=== PATIENT | male | born 1950 | race Caucasian/White ===

== ENCOUNTER 2021-05-08 12:11 | Observation (INO) | payer MEDICARE ==
[~2021-05-08] VITALS: Ht 188 cm; Wt 93.6 kg
[~2021-05-08 12:11] MED LIST: ANORO IH; ASPIRIN E.C. 8181 MG PO; CARDIZEM CD 18180 MG PO; COREG 25MG25 MG/TAB PO; DEMADEX100 MG PO; DIABETA 5MG5 MG/TAB PO; ELIQUIS 5MG PO; FARXIGA10 PO; FARXIGA5 PO; FISH OIL 1000MG1 CAP PO; FISH OIL1000 MG PO; GLUCOPHAGE1000 MG PO; GLUCOPHAGE500 MG/TAB PO; INSPRA25 MG PO; JANUVIA 100MG100 MG PO; LASIX 20MG TABL20 MG PO; LIPITOR20 MG PO; MULTAQ400 MG PO; MULTIPLE VITAMI1 CAP PO; NITRO-DUR0.2 MG/PAT TD; PULMICORT180 MCG/Ac IH; ZESTRIL40 MG PO
[2021-05-08 12:41] LABS: HEMOGLOBIN 11.1 g/dl (13.5-18.0); MEAN CELL VOLUME 83 fl (80.0-100.0); MEAN CORPUSCULAR HEMOGLOBIN 27 pg (27-31); MEAN CORPUSCULAR HGB CONC 33 g/dl (33.0-37.0); MEAN PLATELET VOLUME 10.6 fl (7.4-10.4); PLATELET COUNT 282 K/mm3 (130-400); RED BLOOD COUNT 4.12 M/mm3 (4.20-5.60); REDCELL DISTRIBUTION WIDTH-CV 15.9 % (11.5-14.5)
[2021-05-08 12:43] LABS: HEMATOCRIT 34.2 % (42.0-52.0)
[2021-05-08 12:56] LABS: ALANINE AMINOTRANSFERASE 28 U/L (0-55); ALBUMIN 2.7 gm/dL (3.4-4.8); ALKALINE PHOSPHATASE 137 U/L (40-150); ANION GAP 16 mmol/L (7-16); AST,SGOT 19 U/L (5-34); BILIRUBIN,TOTAL 1.6 mg/dL (0.2-1.2); BLOOD UREA NITROGEN 37 mg/dL (8-26); CARBON DIOXIDE 20 mmol/L (23-31); CHLORIDE 100 mmol/L (98-107); CREATININE, serum 1.52 mg/dL (0.72-1.25); GLUCOSE 123 mg/dL (70-99); POTASSIUM 5.3 mmol/L (3.5-4.5); SODIUM 136 mmol/L (136-145); TOTAL PROTEIN 6.6 gm/dL (6.2-8.1)
[2021-05-08 13:01] LABS: ANISOCYTOSIS 1+; EOSINOPHIL 3 % (0-4); LYMPHOCYTE 10 % (20.0-51.0); NEUTROPHILS 80 % (42.0-75.2); PLATELET ESTIMATE NORMAL (NORMAL)
[2021-05-08 13:04] LABS: TROPONIN-I < 0.010 ng/mL (0.00-0.033)
[2021-05-08 17:22] LABS: COLLECTION METHOD CLEAN CATCH
[2021-05-08 17:32] LABS: PH 5 (5-8); SQUAMOUS EPITHELIAL 0-2 /hpf (0-10); URINE APPEARANCE Clear (CLEAR/HAZY); URINE BACTERIA None Seen (NONE SEEN); URINE BILIRUBIN Negative (NEGATIVE); URINE BLOOD Negative (NEGATIVE); URINE COLOR Yellow (YELLOW); URINE GLUCOSE 1+ (NEGATIVE); URINE KETONE Negative (NEGATIVE); URINE LEUKOCYTE ESTERASE Negative (NEGATIVE); URINE NITRATE Negative (NEGATIVE); URINE PROTEIN(semi-quant) Negative (NEGATIVE); URINE RBC 0-2 /hpf (0-2)
--- NOTE | 2021-05-08 19:46 | NUR ---
RECEIVED REPORT FROM ED RNRITU. PATIENT ARRIVAL FROM E.D. PENDING FOR ADMIT TO ROOM 358.
--- NOTE | 2021-05-08 20:15 | NUR ---
PATIENT TO ROOM PER E.D. CART W/PCT TRANSPORTING PATIENT. PATIENT ON ROOM AIR, TELE IN PLACE. INT TO RAC IN PLACE. PATIENT HAS SPILLED URINAL WHEN ARRIVED TO ROOM WHILE ON E.D. CART. OBSERVED URINE YELLOW ON LINEN/CHUX PAD. DENIES CHEST PAIN. PATIENT ALERT AND ORIENTED.
[2021-05-08 20:51] VITALS: BP 169/82; PULSE 98; TEMP 98.7
[2021-05-08 20:53] LABS: MAGNESIUM 1.3 mg/dL (1.6-2.6); PHOSPHOROUS 3.6 mg/dL (2.3-4.7)
[2021-05-08] MEDS ORDERED: COREG12.5 MG PO (23:15)
[2021-05-08] MEDS ORDERED: DEMADEX 20MG20 M1 PO (23:21)
[2021-05-08] MEDS ORDERED: ALDACTONE 25MG25 M1 PO (23:22)
[2021-05-08] MEDS ORDERED: XARELTO20 MG PO (23:24)
[2021-05-08] MEDS ORDERED: FARXIGA5 PO (23:26)
[2021-05-08] MEDS ORDERED: CEPHALEXIN500 M1 PO (23:27)
[2021-05-09] VITALS (7 sets, daily range): BP systolic 118–143; BP diastolic 50–70; PULSE 50–95; TEMP 97.3–98.1
[2021-05-09 01:05] LABS: CALCIUM 8.4 mg/dL (8.4-10.2); CREATININE, serum 1.26 mg/dL (0.72-1.25)
[2021-05-09 01:21] LABS: TROPONIN-I 0.041 ng/mL (0.00-0.033)
--- NOTE | 2021-05-09 04:04 | NUR ---
PATIENT WEAK PRIOR TO ADMIT AND SINCE ADMIT TO ROOM 358. DENIES CHEST PAIN/SOA SO FAR THIS SHIFT. IV FLUIDS INFUSING WITH NO PROBLEMS. TELE IN PLACE.
--- NOTE | 2021-05-09 06:30 | NUR ---
Report received from MAEGAN Noel. Pt in bed resting, denies need,s will continue ot monitor.
--- NOTE | 2021-05-09 07:34 | NUR ---
CHANGE OF SHIFT REPORT GIVEN TO DAY SHIFT RN, INOCENCIO.
[2021-05-09 07:38] LABS: HEMOGLOBIN 10.4 g/dl (13.5-18.0); MEAN CELL VOLUME 83 fl (80.0-100.0); MEAN CORPUSCULAR HEMOGLOBIN 27 pg (27-31); MEAN CORPUSCULAR HGB CONC 32 g/dl (33.0-37.0); MEAN PLATELET VOLUME 10.8 fl (7.4-10.4); PLATELET COUNT 269 K/mm3 (130-400); RED BLOOD COUNT 3.86 M/mm3 (4.20-5.60); REDCELL DISTRIBUTION WIDTH-CV 15.9 % (11.5-14.5)
[2021-05-09 07:39] LABS: HEMATOCRIT 32.2 % (42.0-52.0)
[2021-05-09 07:49] LABS: CALCIUM 8.5 mg/dL (8.4-10.2); CREATININE, serum 1.09 mg/dL (0.72-1.25); POTASSIUM 4.5 mmol/L (3.5-4.5)
--- NOTE | 2021-05-09 08:32 | NUR ---
Assessment charted. Pt i nbed resting, getting echo at this itme. Denies pain. IVF to RFA. Alert and oriented. Eating breakfast well and low blood sugar from this am resolving, will conitnue to monitor.
[2021-05-09 09:29] LABS: BASOPHIL 2 % (0-2); EOSINOPHIL 4 % (0-4); LYMPHOCYTE 8 % (20.0-51.0); NEUTROPHILS 80 % (42.0-75.2); PLATELET ESTIMATE NORMAL (NORMAL)
[2021-05-09 09:30] LABS: ANISOCYTOSIS 1+; HYPOCHROMIA 1+
--- NOTE | 2021-05-09 14:30 | NUR ---
First visit from the stitch welder. No needs right now.
--- NOTE | 2021-05-09 16:36 | NUR ---
Lead Retail Sales Associate met with patient to discuss discharge planning. Patient lives in [place] with his , Ophelia (ph#[phone]) and sees Valeria Leroy APRN at [facility] in for primary care. Patient also obtains medications from [facility]. Patient states he has home oxygen through [employer] and also has a cane/walker. Patient states he has been having difficulty with ADLS and feels he needs rehab before returning home. Patient is currently observation status but believes he had three inpatient midnights at [facility] and [facility] (05/01-05/04). Patient's preferences for rehab are 1)[facility] and 2) [facility]. SW contacted both facilities and faxed referrals. Discharge Plan: Pending referrals at [facility] and [facility]
--- NOTE | 2021-05-09 19:20 | NUR ---
Pt has done well over shift today. REsting in bed, taking PO well, voiding per urinal with incontinence at times. Report given to mahihijasvir batista who will resume care.
[2021-05-10 02:32] VITALS: BP 124/54; PULSE 81; TEMP 98
[2021-05-10 06:06] VITALS: BP 125/54; PULSE 76; TEMP 98.2
--- NOTE | 2021-05-10 06:14 | NUR ---
PT HAD UNEVENTFUL NIGHT THIS SHIFT. ALL NEEDS MET. CALL LIGHT WTIHIN REACH.
[2021-05-10 07:26] LABS: MEAN CELL VOLUME 85 fl (80.0-100.0); MEAN CORPUSCULAR HGB CONC 31 g/dl (33.0-37.0); PLATELET COUNT 258 K/mm3 (130-400); RED BLOOD COUNT 3.61 M/mm3 (4.20-5.60); REDCELL DISTRIBUTION WIDTH-CV 15.9 % (11.5-14.5)
[2021-05-10 07:36] LABS: HEMATOCRIT 30.6 % (42.0-52.0); HEMOGLOBIN 9.6 g/dl (13.5-18.0); MEAN CORPUSCULAR HEMOGLOBIN 27 pg (27-31)
[2021-05-10 07:38] LABS: CALCIUM 8.6 mg/dL (8.4-10.2); CREATININE, serum 1.09 mg/dL (0.72-1.25); POTASSIUM 4.6 mmol/L (3.5-4.5)
[2021-05-10 08:07] VITALS: BP 130/59; PULSE 94; TEMP 97.9
--- NOTE | 2021-05-10 08:13 | NUR ---
Pt assessment complete. Pt is laying in bed upon entry, he is A/O x4. His breathing is even and unlabored on 3L O2 via [place]. Pt denies SOB. Reports he only wears oxygen at night and would like to take it off at this time. No pain reported. Denies N/V. Pt incontinent of urine and some stool, pericare provided. Pt repositioned. No further needs, call light within reach.
[2021-05-10 09:13] LABS: BAND 11 % (0-10); EOSINOPHIL 6 % (0-4); LYMPHOCYTE 11 % (20.0-51.0); NEUTROPHILS 60 % (42.0-75.2); PLATELET ESTIMATE NORMAL (NORMAL)
[2021-05-10 11:05] VITALS: BP 104/62; PULSE 71; TEMP 98.8
[2021-05-10] MEDS ORDERED: GLUCOPHAGE500 MG/TAB PO (14:53)
[2021-05-10] MEDS ORDERED: DIABETA 5MG5 MG/TAB PO (14:53)
[2021-05-10] MEDS ORDERED: JANUVIA 100MG100 MG PO (14:53)
[2021-05-10] MEDS ORDERED: TOPROL XL 50MG50 MG PO (14:53)
[2021-05-10] MEDS ORDERED: FARXIGA5 PO (14:53)
[2021-05-10] MEDS ORDERED: ASPIRIN E.C. 8181 MG PO (14:53)
[2021-05-10] MEDS ORDERED: XARELTO20 MG PO (14:54)
[2021-05-10] MEDS ORDERED: LIPITOR20 MG PO (14:55)
[2021-05-10] MEDS ORDERED: MULTAQ400 MG PO (14:55)
[2021-05-10] MEDS ORDERED: CEPHALEXIN500 M1 PO (14:55)
--- NOTE | 2021-05-10 15:15 | NUR ---
Planer Offbearer faxed clinical updates to [facility] and [facility]. SW spoke with Suha at [facility] who advised they can accept patient today. Transport time was set for 1545. SW met with patient to provide update and he is in agreement with discharge to [facility] today. While in patient's room, SW attempted to contact patient's , Ophelia and she did not answer and the voicemail box was full. SW then contacted patient's step daughter, Terri and notified her of discharge. Discharge Plan: [facility]
[2021-05-10 15:24] VITALS: BP 104/62; PULSE 71; TEMP 98.8
--- NOTE | 2021-05-10 16:06 | NUR ---
IV to R hand dc'd catheter tip intact. Pt wheeled out of facility by [facility] staff at this time.
--- NOTE | 2021-05-10 16:16 | NUR ---
Report given to MAEGAN Riley.
== END 2021-05-10 16:18 ==
LOC: COL.ER 12:11 → MEDICAL 19:10
PROVIDERS: Nurse Practitioner Family; Physician Assistant; ADMIT Internal Medicine
DX: R53.1 Weakness (principal); R53.81 Other malaise; R65.10 Systemic inflammatory response syndrome (SIRS) of non-infectious origin without acute organ dysfunction; Z91.81 History of falling; R42 Dizziness and giddiness; I95.1 Orthostatic hypotension; N17.9 Acute kidney failure, unspecified; Z20.822 Contact with and (suspected) exposure to COVID-19; E87.5 Hyperkalemia; E83.42 Hypomagnesemia; I11.0 Hypertensive heart disease with heart failure; I50.9 Heart failure, unspecified; I25.10 Atherosclerotic heart disease of native coronary artery without angina pectoris; E11.621 Type 2 diabetes mellitus with foot ulcer; L97.519 Non-pressure chronic ulcer of other part of right foot with unspecified severity; L97.518 Non-pressure chronic ulcer of other part of right foot with other specified severity; J44.9 Chronic obstructive pulmonary disease, unspecified; E11.10 Type 2 diabetes mellitus with ketoacidosis without coma; E78.5 Hyperlipidemia, unspecified; D64.9 Anemia, unspecified; I07.1 Rheumatic tricuspid insufficiency; I35.0 Nonrheumatic aortic (valve) stenosis; I48.91 Unspecified atrial fibrillation; R91.8 Other nonspecific abnormal finding of lung field; Z95.1 Presence of aortocoronary bypass graft; Z79.82 Long term (current) use of aspirin; Z79.899 Other long term (current) drug therapy; Z79.84 Long term (current) use of oral hypoglycemic drugs; Z95.828 Presence of other vascular implants and grafts; Z79.2 Long term (current) use of antibiotics; Z87.891 Personal history of nicotine dependence; Z87.898 Personal history of other specified conditions; Z95.818 Presence of other cardiac implants and grafts; Z79.01 Long term (current) use of anticoagulants
CPT/HCPCS: 99232-AI; G0378; J1815; J3475; J7030

== ENCOUNTER → 2021-06-24 | Outpatient (CLI) | payer MEDICARE, BC ==
[~2021-06-24] MED LIST changes: +ALDACTONE 25MG25 M1 PO; +CARTIA XT180 MG PO; +CEPHALEXIN500 M1 PO; +COREG12.5 MG PO; +DEMADEX 20MG20 M1 PO; +OMNICEF 300MG300 MG PO; +TOPROL XL 50MG50 MG PO; +XARELTO20 MG PO
== END ==
LOC: ZCOL.LAB 16:10
DX: E13.621 Other specified diabetes mellitus with foot ulcer (principal); L84 Corns and callosities; T14.8XXA Other injury of unspecified body region, initial encounter; E13.42 Other specified diabetes mellitus with diabetic polyneuropathy

== ENCOUNTER → 2021-07-01 | Day surgery (SDC) | payer MEDICARE ==
[~2021-07-01] VITALS: Ht 188 cm; Wt 84.4 kg
[2021-07-01 13:35] VITALS: BP 155/77; PULSE 72
[2021-07-01 13:52] LABS: HEMATOCRIT 38.9 % (42.0-52.0); HEMOGLOBIN 11.9 g/dl (13.5-18.0); MEAN CELL VOLUME 86 fl (80.0-100.0); MEAN CORPUSCULAR HEMOGLOBIN 26 pg (27-31); MEAN CORPUSCULAR HGB CONC 31 g/dl (33.0-37.0); PLATELET COUNT 290 K/mm3 (130-400)
[2021-07-01 14:02] VITALS: BP 124/69; PULSE 74; TEMP 98.5
[2021-07-01 14:08] LABS: CALCIUM 9.2 mg/dL (8.4-10.2); CREATININE, serum 1.08 mg/dL (0.72-1.25); MAGNESIUM 1.4 mg/dL (1.6-2.6); POTASSIUM 4.4 mmol/L (3.5-4.5)
[2021-07-01 14:17] LABS: INR 2.5 (0.8-3.0); PROTHROMBIN TIME 27.8 SECONDS (9.7-12.8)
[2021-07-01 14:20] LABS: PARTIAL THROMBOPLASTIN TIME 45.5 SECONDS (26.0-37.0)
[2021-07-01 14:28] LABS: THYROID STIMULATING HORMONE 0.93 uIU/mL (0.350-4.940)
--- NOTE | 2021-07-01 14:38 | NUR ---
Consent for Loop Recorder Implant obtained after cardioversion cancelled by Dr. Wayne.
--- NOTE | 2021-07-01 15:50 | NUR ---
DC instructions reviewed, pt and express understanding. INT DC'd with catheter intact. Dressing over loop implant site is clean, dry and intact. Pt assisted from bed to wheelchair x1 assist, he states this is his baseline due to known ulcer to foot. He is assisted out to car by wheelchair with belongings.
== END ==
LOC: COL.RAD 11:58 → COL.CAR 13:30
PROVIDERS: Internal Medicine Cardiovascular Disease
DX: I48.0 Paroxysmal atrial fibrillation (principal); I25.10 Atherosclerotic heart disease of native coronary artery without angina pectoris; I50.32 Chronic diastolic (congestive) heart failure; I11.0 Hypertensive heart disease with heart failure; E11.9 Type 2 diabetes mellitus without complications; E78.5 Hyperlipidemia, unspecified; E66.9 Obesity, unspecified; I35.0 Nonrheumatic aortic (valve) stenosis; E78.2 Mixed hyperlipidemia; D64.9 Anemia, unspecified; N28.9 Disorder of kidney and ureter, unspecified; I27.20 Pulmonary hypertension, unspecified; G47.33 Obstructive sleep apnea (adult) (pediatric); J44.9 Chronic obstructive pulmonary disease, unspecified; Z99.89 Dependence on other enabling machines and devices; Z79.82 Long term (current) use of aspirin; Z79.899 Other long term (current) drug therapy; Z79.84 Long term (current) use of oral hypoglycemic drugs; Z87.891 Personal history of nicotine dependence; Z95.1 Presence of aortocoronary bypass graft; Z79.01 Long term (current) use of anticoagulants
CPT/HCPCS: J2704; Q9967